=== PATIENT | female | born 1960 | race Caucasian/White ===

== ENCOUNTER 2016-09-21 05:35 | Day surgery (SDC) | payer OTHER ==
[2016-09-21] VITALS (9 sets, daily range): BP systolic 128–147; BP diastolic 71–94; PULSE 76–90; RESP 14–20; Ht 157.5 cm; Wt 81.1 kg
[~2016-09-21] VITALS: Ht 157.5 cm; Wt 81.1 kg
[2016-09-21] MEDS ORDERED: HYDR-3671 PO (06:44)
[2016-09-21] MEDS ORDERED: BUSP10TA2 PO (06:44)
[2016-09-21] MEDS ORDERED: CLON-379 PO (06:44)
[2016-09-21] MEDS ORDERED: OLAN7.5T5 PO (06:44)
[2016-09-21] MEDS ORDERED: TEMA30CA PO (06:44)
[2016-09-21] MEDS ORDERED: AMLO-147 PO (06:44)
[2016-09-21] MEDS ORDERED: HYDROmorphONE (0.2 MG/ML) 10ML SYG IV PRN ×3 (07:00)
[2016-09-21] MEDS ORDERED: ONDANSETRON 4 MG INJ IV PRN (07:00)
[2016-09-21] MEDS ORDERED: FENTAnyl 50 MCG/ML VIAL IV PRN ×2 (07:00)
[2016-09-21] MEDS ORDERED: hydrALAzine 20 MG INJ IV PRN (07:00)
[2016-09-21] MEDS ORDERED: MEPERIDINE 25 MG INJ IV PRN (07:00)
--- NOTE | 2016-09-21 07:29 | HPN ---
Date/Time of Note Date/Time of Note DATE: 09/21/16 TIME: 07:29 Interval H&P Admission Note Pt. seen H&P reviewed: No system changes DAVID ESTRADA MD Sep 21, 2016 07:29
[2016-09-21] MEDS ORDERED: LACTATED RINGER'S 1,000 ML IV* SCH (10:30)
--- NOTE | 2016-09-22 11:58 | OPR ---
DATE OF OPERATION: 09/21/2016 PREOPERATIVE DIAGNOSIS: Post-menopausal bleeding. POSTOPERATIVE DIAGNOSIS: See pathologic report. OPERATION PERFORMED: Hysteroscopy, dilatation, curettage. ANESTHESIA: General. ANESTHESIOLOGIST: Dr. Morocho. SURGEON: Jayro Wesley. [employer] Instructor: Jigar from . OPERATIVE PROCEDURE: Under the proper induction of general anesthesia, the patient was placed in the dorsal lithotomy position. Perineum and vagina was prepped and draped in usual sterile manner. On inspection, no abnormality. Bimanual examination was inadequate due to the body habitus, but there was no unusual mass felt. The introitus was very tight. The patient has never gave and vaginal orifice was regular to be tight. Weighted speculum was introduced, which was occupying the whole vaginal cavity space, trying to use the weighted Estefany, which was not staying inside of cavity, which is troubling, and in the reverse Trendelenburg position, cervix was barely identified, which was extremely small and there is no room to even put the tenaculum, which was barely done. With traction, the cervical curettage was performed with obtaining tissue, which was sent to the pathologist separately. The smallest dilator was used to guide the cavity, which was recognized and followed by larger size of which was inserted up to 3 and the cavity was sounded, which shows a 7 cm with marked difficulty because it's difficult to find and difficult to direct the opening because of no space under the cervix. Cervix was dilated up to 6 and the hysteroscope, which was connected to all the inflow and outflow was introduced and visualized the end of cervix. I advanced the scope and was able to locate the right ostium, but left ostium somehow because of the angle was not shown. The soft tissue dissector was introduced and endometrial curettage was initiated. But due to the angle of the cavity, the cervix was dilated up to 6, which allows a lot of leakage of the medium. A lot fluid loss, which was not able to be gauged because the fluid was not contained completely in one place and lost on the floor. With marked difficulty and many attempts to readjust the scope and able to proceed with the curettage, but unsatisfactory due to the leakage of the return medium and the inadequate visualization disproportion of the angle. It took almost an hour to do this procedure. Since the procedure was unsatisfactory, a traditional endometrial curettage was added, which is even also difficult because of the opening and the angle of the cavity. But able to finish the entire cavity, with was curetted with obtaining very scant tissue, which was also sent with the tissue that was obtained in the retrieval. The procedure was completed. The instruments were removed from the operative field. The patient withstood the procedure well, sent to the recovery room in stable condition. Dictated By: Roro Wesley MD /jose/yessy /Document#: [id number]
[2016-09-22] MEDS ORDERED: METOCLOPRAMIDE 10 MG INJ ONE (18:01)
[2016-09-22] MEDS ORDERED: PROPOFOL 20 ML ONE (18:01)
[2016-09-22] MEDS ORDERED: ROCURONIUM 50 MG INJ ONE (18:01)
[2016-09-22] MEDS ORDERED: FENTAnyl 50 MCG/ML VIAL ONE (18:01)
[2016-09-22] MEDS ORDERED: SUCCINYLCHOLINE CHLORIDE 100 MG/5 ML SYG IV ONE (18:01)
[2016-09-22] MEDS ORDERED: ONDANSETRON 4 MG INJ ONE (18:01)
== END 2016-09-21 11:15 | disposition home or self-care (01) ==
LOC: SDS 05:35
PROVIDERS: ATTEND Obstetrics & Gynecology
DX: N95.0 Postmenopausal bleeding (principal); N84.0 Polyp of corpus uteri; I10 Essential (primary) hypertension
CPT/HCPCS: 58558; 88305; Z7512; Z7610; J2405; J2765; J3010; J7999

== ENCOUNTER 2018-05-04 07:42 | Day surgery (SDC) | payer OTHER ==
[~2018-05-04] VITALS: Ht 165.1 cm; Wt 85.1 kg
[2018-05-04] VITALS (14 sets, daily range): BP systolic 117–163; BP diastolic 68–96; PULSE 82–102; RESP 13–25; Ht 165.1 cm; Wt 85.1 kg
[~2018-05-04 07:42] MED LIST: AMLO-147 PO; BUSP10TA2 PO; CLON-379 PO; HYDR-3671 PO; OLAN7.5T5 PO; SOD CHLORIDE 0.9% 1,000 ML IV SCH; TEMA30CA PO
[2018-05-04] MEDS ORDERED: OLAN5TAB5 PO (08:37)
[2018-05-04] MEDS ORDERED: OLAN10TA7 PO (08:38)
[2018-05-04] MEDS ORDERED: TEMA30CA PO (08:40)
[2018-05-04] MEDS ORDERED: DOCU250C58 PO (08:43)
[2018-05-04] MEDS ORDERED: ERGO500013 PO (08:44)
--- NOTE | 2018-05-04 10:10 | PREAC ---
Date/Time of Note Date/Time of Note DATE: 05/04/18 TIME: 10:06 Anesthesia Eval and Record Evaluation Time Pre-Procedure Interview DATE: 05/04/18 TIME: 10:06 Age 57 Sex female NPO: 8 hrs Preoperative diagnosis Left breast CA Planned procedure Left needle localized partial mastectomy Past Medical History Past Medical History: Includes Cardio: HTN GI: GERD, Obesity Psych: Depression, Anxiety Surgery & Anesthesia Issues No known issue Meds Anticoagulation: No Beta Cathy within 24 hr: No Reason Beta Cathy not given: Pt. not on B-Cathy Reported Medications Ergocalciferol (Vitamin D2) (VITAMIN D2) 50,000 Unit Capsule, 40965 UNIT PO WEEKLY, CAP 05/04/18 Docusate Sodium* (Colace*) 250 Mg Capsule, 250 MG PO DAILY 05/04/18 Temazepam* (Temazepam*) 30 Mg Capsule, 30 MG PO HS PRN for INSOMNIA, CAP 05/04/18 Olanzapine* (Zyprexa*) 10 Mg Tablet, 10 MG PO DAILY, #30 TAB 05/04/18 Olanzapine* (Zyprexa*) 5 Mg Tablet, 5 MG PO TID, #30 TAB 05/04/18 Hydralazine Hcl* (Hydralazine Hcl*) 25 Mg Tab, 25 MG PO BID, #90 TAB 09/21/16 Clonidine Hcl* (Clonidine Hcl*) 0.1 Mg Tab, 0.1 MG PO Q6 PRN for ELEVATED BLOOD PRESSURE, TAB 09/21/16 Buspirone Hcl* (Buspirone Hcl*) 10 Mg Tab, 10 MG PO QID, TAB 09/21/16 Discontinued Reported Medications Amlodipine Besylate* (Amlodipine Besylate*) 10 Mg Tablet, 10 MG PO DAILY, #30 TAB 09/21/16 Temazepam* (Temazepam*) 30 Mg Capsule, 30 MG PO HS PRN for INSOMNIA, CAP 09/21/16 Olanzapine* (Olanzapine*) 7.5 Mg Tablet, 5 MG PO DAILY, #30 TAB 09/21/16 Current Medications Sodium Chloride 1,000 ml @ 75 mls/hr [id number] IV Last administered on 05/04/18at 09:53; Admin Dose 75 MLS/HR; Start 05/04/18 at 07:00; Stop 05/04/18 at 20:19 Meds reviewed: Yes Allergies Coded Allergies: Sulfa (Sulfonamide Antibiotics) (Verified Allergy, Severe, RASHES, 05/04/18) PER PT Penicillins (Verified Allergy, Mild, rashes, 05/04/18) PER PT "I'M ALLERGIC TO ALL ANTIBIOTICS EXCEPT AZITHROMYCIN Uncoded Allergies: INDERAL (Adverse Reaction, Mild, FAINTING, HEART ISSUES, 09/21/16) Allergies Reviewed: Yes Labs/Studies Labs Reviewed: Reviewed by anesthesiologist test: N/A Pre-procedure Exam Last vitals Vital Signs Date Temp Pulse Resp B/P (MAP) Pulse Ox O2 O2 Flow FiO2 Time Delivery Rate 05/04/18 99.2 102 16 163/96 96 Room Air 08:42 (118) Airway: Adequate mouth opening Mallampati: Mallampati II Teeth: Normal Lung: Normal Heart: Normal ASA Physical Status ASA physical status: 3 Emergency: None Planned Anesthetic General/MAC: LMA Planned Pain Management Parenteral pain med Pre-operative Attestations Prior to commencing anesthesia and surgery, the patient was re-evaluated, there was verification of: *The patient's identity *The results of appropriate recent lab work and preoperative vital signs *The above evaluation not changing prior to induction *Anesthetic plan, risk benefits, alternative and complications discussed with patient/family; questions answered; patient/family understands, accepts and wishes to proceed. DELONTE AGARWAL MD May 04, 2018 10:10
[2018-05-04] MEDS ORDERED: METOCLOPRAMIDE 10 MG INJ ONE (10:19)
[2018-05-04] MEDS ORDERED: MEPERIDINE 100 MG INJ ONE (10:19)
[2018-05-04] MEDS ORDERED: LIDOCAINE 2% (SDV) 5 ML INJ ONE (10:19)
[2018-05-04] MEDS ORDERED: ONDANSETRON 4 MG INJ ONE (10:19)
[2018-05-04] MEDS ORDERED: PROPOFOL 20 ML ONE (10:19)
[2018-05-04] MEDS ORDERED: CEFAZOLIN 1 GM INJ ONE (10:19)
[2018-05-04] MEDS ORDERED: hydrALAzine 20 MG INJ IV PRN (11:30)
[2018-05-04] MEDS ORDERED: MIDAZOLAM 1 MG/ML 2 ML INJ IV PRN (11:30)
[2018-05-04] MEDS ORDERED: MEPERIDINE 25 MG INJ IV PRN (11:30)
[2018-05-04] MEDS ORDERED: FENTAnyl 50 MCG/ML VIAL IV PRN ×3 (11:30)
[2018-05-04] MEDS ORDERED: METOCLOPRAMIDE 10 MG INJ IV PRN (11:30)
[2018-05-04] MEDS ORDERED: EPHEDrine SULFATE 50 MG/5 ML SYG IV PRN (11:30)
[2018-05-04] MEDS ORDERED: ONDANSETRON 4 MG INJ IV PRN (11:30)
[2018-05-04] MEDS ORDERED: DIPHENHYDRAMINE 50 MG INJ IV PRN (11:30)
[2018-05-04] MEDS ORDERED: HYDROmorphONE 1 MG/5 ML IV SYRINGE IV PRN ×3 (11:30)
[2018-05-04] MEDS ORDERED: OXYCODONE/ACETAMINOPHEN (5/325) TAB PO PRN ×2 (11:30)
[2018-05-04] MEDS ORDERED: LABETALOL HCL 20MG INJ IV PRN (11:30)
--- NOTE | 2018-05-04 11:46 | SIPON ---
Date/Time of Note Date/Time of Note DATE: 05/04/18 TIME: 11:45 Operative Report Preoperative Diagnosis Ductal carcinoma left breast rule out invasion Postoperative Diagnosis Same Operation/Procedure Performed Left needle directed partial mastectomy Surgeon see signature line special education assistant Dr Bravo Anesthesia: general Estimated blood loss: 10 - 50 ml's Transfusion Required none Specimen Left partial mastectomy specimen Grafts/Implants none Complications none LEONEL VERMA MD May 04, 2018 11:46
[2018-05-04] MEDS ORDERED: HYDROCODONE/APAP (7.5/325) TAB PO ONE (12:00)
--- NOTE | 2018-05-04 12:26 | OPR ---
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 OPERATION PERFORMED: Left needle-directed partial mastectomy. ANESTHESIA: General. ANESTHESIOLOGIST: Madan Blackmon MD SURGEON: Robert Pham MD CYBER DEFENSE FORENSICS ANALYST: Ricardo Leung MD INDICATIONS FOR PROCEDURE: The patient is a 57-year-old female who underwent screening mammography a nd was found to have suspicious microcalcifications in her left breast. Subsequent core biopsy revea led a diagnosis of ductal carcinoma in situ and complete excisional biopsy was recommended. DESCRIPTION OF PROCEDURE: On the morning of surgery, the patient presented to [facility] where she underwent localization of the lesion performed by attending radiologist, Dr. Javy Tariq. Subsequently, she was brought to the operating theater, placed under general a nesthesia. The left breast was prepped and draped in usual sterile fashion. The localization needle was approximately between the 11 and 12 o'clock location approximately 3 cm from nipple areolar bord er. A curvilinear incision was made in this region and subcutaneous tissue was dissected with cauter y. Skin edges were then elevated and wide circumferential dissection of the tissue associated with t he wire then took place, taking great care to ensure adequate margin. Specimen was elevated, transec jessie, oriented, and sent for radiographic confirmation of capture. Capture was confirmed. Specimen w as then sent for permanent pathologic analysis. The wound was irrigated. Minimal bleeding was contr olled with cautery. The skin was then reapproximated with a deep dermal layer of 4-0 Vicryl sutures, followed by final skin approximation with 5-0 PDS sutures in subcuticular fashion and Dermabond was applied. The patient tolerated procedure well. Estimated blood loss was 20 mL. There were no compl ications and the patient was transported in stable condition to the recovery room where circumferenti al compression dressing was applied. Dictated By: ROBERT PHAM MD TL/NTS Conf#: [id number] DID#: [id number] CC: RICARDO LEUNG MD;*EndCC*
--- NOTE | 2018-05-04 12:50 | PAC ---
Date/Time of Note Date/Time of Note DATE: 05/04/18 TIME: 12:50 Post-Anesthesia Notes Post-Anesthesia Note Last documented vital signs Vital Signs Date Temp Pulse Resp B/P (MAP) Pulse Ox O2 O2 Flow FiO2 Time Delivery Rate 05/04/18 86 15 134/71 93 Room Air 12:28 (92) 05/04/18 98.5 11:58 Activity: WNL Respiratory function: WNL Cardiovascular function: WNL Mental status: Baseline Pain reasonably controlled: Yes Hydration appropriate: Yes Nausea/Vomiting absent: Yes DELONTE AGARWAL MD May 04, 2018 12:50
--- NOTE | 2018-05-05 14:16 | RADRPT ---
Vent Rate: 89 bpm RR Interval: 0 msec OH Interval: 126 msec QRS Duration: 76 msec QT Interval: 360 msec QTC Interval: 438 msec P-R-T [place]: 58 - 2 - 11 degrees Normal sinus rhythm Inferior infarct , age undetermined Abnormal ECG Electronically Signed By: Jordy Feliciano
== END 2018-05-04 13:50 | disposition home or self-care (01) ==
LOC: SDS 07:42
PROVIDERS: ATTEND Surgery Surgical Oncology
DX: D05.12 Intraductal carcinoma in situ of left breast (principal); I10 Essential (primary) hypertension
CPT/HCPCS: 19301; 71045; 88307; 93005; J2175; J2405; J2765; Z7512; Z7610; J0690